=== PATIENT | male | born 1950 | race Caucasian/White ===

== ENCOUNTER → 2019-03-23 11:04 | Outpatient (BNVA) | payer MEDICARE, SELFPAY | PROVIDERS: Family Provider Family Medicine; PCP Family Medicine; Referring Provider Family Medicine; Visit Provider Family Medicine | DX: E53.8 Deficiency of other specified B group vitamins (principal); Z71.89 Other specified counseling | CPT/HCPCS: 82607 ==

== ENCOUNTER → 2020-03-24 11:28 | Outpatient (BNVA) | payer MEDICARE, SELFPAY | PROVIDERS: Family Provider Family Medicine; PCP Family Medicine; Visit Provider Family Medicine | DX: Z00.00 Encounter for general adult medical examination without abnormal findings (principal); D51.0 Vitamin 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 | CPT/HCPCS: 82607; 85025 ==

== ENCOUNTER 2022-02-20 02:39 | Inpatient (IN) | payer MEDICARE, SELFPAY ==
[2022-02-20] VITALS (19 sets, daily range): BP systolic 91–138; BP diastolic 63–94; PULSE 74–104; RESP 16–18; TEMP 36.4–37.4; O2SAT 91–96; BMI 25.8
--- NOTE | 2022-02-20 02:43 | XRR_ITS ---
PROCEDURE INFORMATION: Exam: XR Left Hip Exam date and time: 02/20/2022 2:48 AM Age: 71 years old Clinical indication: Injury or trauma; Fall; Blunt trauma (contusions or hematomas); Patient HX: Patient fell from standing while going to bathroom at home. C/O left hip pain with visual external rotation and forshortening. TECHNIQUE: Imaging protocol: Radiologic exam of the Left hip. Views: 2 or 3 views hip with pelvis when performed. COMPARISON: No relevant prior studies available. FINDINGS: Bones/joints: There is a moderately displaced and comminuted acute left hip intertrochanteric/subtrochanteric fracture. No femoral head dislocation. Moderate left hip DJD. Soft tissues: Unremarkable. XR/XR hip LT 2-3V wo/w pel* [id number] IMPRESSION: Left hip acute surgical fracture.
--- NOTE | 2022-02-20 02:45 | W.ED.FALL ---
HPI - Fall General: Chief Complaint: Fall Stated Complaint: FALL Time Seen by Provider: 02/20/22 02:43 Source: patient Mode of arrival: ambulatory Limitations: no limitations History of Present Illness: 71-year-old male who states he got up to go to the bathroom tonight and fell states he fell instability hit his left hip he does have left hip pain he has not been able ambulate he does have shortening rotation of that leg he denies any other injuries denies hitting his head. He received 100 mcg of fentanyl in route his pain is currently a 3 out of 10. Associated symptoms-after fall: Denies abdominal pain, chest pain or headache(s) Review of Systems Const: Denies: fever(s), chills, body aches or change in appetite Eyes: Denies: blurry vision or eye discomfort ENMT: Denies: throat pain or dental pain Card: Denies: chest pain Resp: Denies: dyspnea GI: Denies: abdominal pain, nausea, vomiting or diarrhea : Denies: dysuria Musc: Reports: extremity pain Skin/Breast: Denies: rash Neuro: Denies: headache(s) Psych: Denies: depression Jonel/Lymph: Denies: easy bruising All/Imm: Denies: urticaria PFSH ED PFSH: Medical History Hyperlipemia Vitamin B12 deficiency anemia Social History Smoking and tobacco status: never smoked Physical Exam Const: COMMON NORMALS: patient oriented x3 HENMT: COMMON NORMALS: normocephalic and atraumatic HEAD & SCALP: normocephalic and atraumatic Eye: COMMON NORMALS: Equal, round and reactive pupils present and EOMs intact bilaterally PUPIL: Yes Equal, round and reactive pupils present Neck/C-Spine: COMMON NORMALS: full ROM and supple Chest: COMMONS NORMALS: normal inspection of the chest and normal palpation of entire chest wall Resp: COMMON NORMALS: normal respiratory effort, No retractions, No use of accessory muscles and clear to auscultation bilaterally AUSCULTATION: clear to auscultation bilaterally Cardio: COMMON NORMALS: regular rate, regular rhythm and No murmurs present (Cardio) RATE: regular rate RHYTHM: regular rhythm GI: COMMON NORMALS: Normal to inspection, nondistended, normoactive bowel sounds present, Soft to palpation, non-tender and no masses PALPATION: Yes Soft to palpation Extremity: NARRATIVE EXTREMITY EXAM: tenderness over left hip Neuro: COMMON NORMALS: patient oriented x3, moves all extremities and no focal motor deficits Psych: COMMON NORMALS: mental status grossly normal, Normal thought process present and cooperative THOUGHT PROCESS: Normal thought process present Skin: COMMON NORMALS: no rashes or lesions noted and no wounds GENERAL SKIN EXAM: no rashes or lesions noted Course Vital Signs: Vital signs: Vital Signs Temperature 98.7 F 02/20/22 02:42 Pulse Rate 86 02/20/22 02:42 Respiratory Rate 18 02/20/22 02:42 Blood Pressure 138/94 02/20/22 02:42 Pulse Oximetry 92 02/20/22 02:42 Oxygen Delivery Me thod 02/20/22 02:42 MDM - Fall Medical Decision Making Patient presents here with a hip fracture from a fall he has no other injuries I spoke to hospitalist and orthopedist and will admit. Lab Data 02/20/22 02:30 02/20/22 02:30 Laboratory Results WBC 9.8 10^3/uL (4.0-10.0) 02/20/22 02:30 RBC 4.60 10^6/uL (4.1-5.3) 02/20/22 02:30 Hgb 14.6 g/dL (11.7-16.6) 02/20/22 02:30 Hct 44.3 % (42.0-52.0) 02/20/22 02:30 MCV 96.3 fl (80-94) H 02/20/22 02:30 MCH 31.7 pg (28.0-34.0) 02/20/22 02:30 MCHC 33.0 g/dL (30.0-36.0) 02/20/22 02:30 RDW 12.5 % (12.1-15.1) 02/20/22 02:30 Plt Count 197 10^3/cmm (130-400) 02/20/22 02:30 MPV 9.4 fL (7.4-10.4) 02/20/22 02:30 Neut % (Auto) 67.6 % 02/20/22 02:30 Lymph % (Auto) 19.5 % 02/20/22 02:30 [place] % (Auto) 10.6 % 02/20/22 02:30 Eos % (Auto) 1.3 % 02/20/22 02:30 Baso % (Auto) 0.3 % 02/20/22 02:30 Neut # (Auto) 6.64 10^3/uL (1.8-7.7) 02/20/22 02:30 Lymph # (Auto) 1.9 10^3/uL (0.8-4.8) 02/20/22 02:30 [place] # (Auto) 1.0 10^3/uL (0.2-0.9) H 02/20/22 02:30 Eos # (Auto) 0.1 10^3/uL (0.0-0.8) 02/20/22 02:30 Baso # (Auto) 0.0 10^3/uL (0.0-0.1) 02/20/22 02:30 Nucleated RBC % (auto) 0 % 02/20/22 02:30 Nucleated RBCs # 0.0 /100WBC 02/20/22 02:30 PT 15.40 SECONDS (12.1-14.9) H 02/20/22 02:30 INR 1.18 (0.8-1.2) 02/20/22 02:30 Discharge Plan Discharge Patient Disposition: Admitted As Inpatient Clinical Impression: Fracture of left hip Condition: Stable Prescriptions: No Action cholecalciferol (vitamin D3) 25 mcg (1,000 unit) capsule 75 mcg PO DAILY prenat.vits,shanika,sfh-opkq-gxoxa Tablet 1 tab PO DAILY cyanocobalamin (vitamin B-12) 1,000 mcg/mL solution See Rx Instructions .ROUTE .COMPLEX Qty: 6 5RF Dose Instruction: INJECT 1 & 1/2 (ONE & ONE-HALF) ML (CC) INTRAMUSCULARLY ONCE EVERY MONTH Rx Instructions: INJECT 1 & 1/2 (ONE & ONE-HALF) ML (CC) INTRAMUSCULARLY ONCE EVERY MONTH simvastatin 40 mg tablet See Rx Instructions .ROUTE .COMPLEX Qty: 90 3RF Dose Instruction: Take 1 tablet by mouth once daily Rx Instructions: Take 1 tablet by mouth once daily Referrals: Felicita Dunn MD [Primary Care Provider] - Patient Instructions: Opioid Safety, Pain Management Coding Level of Care Code ED Magneto Repairer for Chg Fwd Exam Comprehensive
--- NOTE | 2022-02-20 02:55 | XRR_ITS ---
PROCEDURE INFORMATION: Exam: XR Chest Exam date and time: 02/20/2022 2:52 AM Age: 71 years old Clinical indication: Injury or trauma; Fall; Blunt trauma (contusions or hematomas); Patient HX: Patient fell from standing while going to bathroom at home. C/O left hip pain with visual external rotation and forshortening. TECHNIQUE: Imaging protocol: Radiologic exam of the chest. Views: 1 view. COMPARISON: No relevant prior studies available. FINDINGS: Lungs: Left lung base opacities are subtle. No actual consolidation. The right lung seems grossly clear. Pleural spaces: No pneumothorax. Heart/Mediastinum: The heart is large. Mild venous congestion. Bones/joints: Unremarkable. XR/XR chest 1V portable [id number] IMPRESSION: 1. Large heart with mild venous congestion. 2. Left lung base atelectasis or scarring possible. Possible minute left effusion.
--- NOTE | 2022-02-20 02:59 | ECG_ITS ---
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 Measurements Intervals [place] Rate: 89 P: 60 [place]: 169 QRS: 32 QRSD: 86 T: 29 QT: 364 QTc: 445 Interpretive Statements SINUS RHYTHM WITH OCCASIONAL ECTOPIC PREMATURE COMPLEXES MINIMAL ST DEPRESSION [0.025+ mV ST DEPRESSION] No previous ECG available for comparison Electronically Signed On 02-20-2022 20:24:56 ANALYTICAL DATA MINER by Nate Saldana M.D. [id number]
[2022-02-20 03:03] LABS: Basophils % 0.3 %; Eosinophils # 0.1 10^3/uL (0.0-0.8); Eosinophils % 1.3 %; Hematocrit 44.3 % (42.0-52.0); Hemoglobin 14.6 g/dL (11.7-16.6); Lymphocytes # 1.9 10^3/uL (0.8-4.8); Lymphocytes % 19.5 %; Mean Corpuscular Hemoglobin 31.7 pg (28.0-34.0); Mean Corpuscular Volume 96.3 fl (80-94); Mean Platelet Volume 9.4 fL (7.4-10.4); Monocytes % 10.6 %; Neutrophils # 6.64 10^3/uL (1.8-7.7); Neutrophils % 67.6 %; Nucleated Red Blood Cells % 0 %; Platelet Count 197 10^3/cmm (130-400); Red Cell Distribution Width 12.5 % (12.1-15.1); White Blood Count 9.8 10^3/uL (4.0-10.0)
[2022-02-20 03:14] LABS: INR 1.18 (0.8-1.2)
[2022-02-20] MEDS: heparin 5,000 unit/mL INJ 1 mL 5000 UNIT SUBCUT (03:24)
[2022-02-20] MEDS: ondansetron 2 mg/ML SDV 2 mL 4 MG IVP (03:26)
[2022-02-20] MEDS: morphine 4 mg/mL SDV 1 mL 2 MG IVP (03:26)
[2022-02-20] MEDS: pantoprazole 40 mg SDV IVP (03:28)
[2022-02-20 03:29] LABS: Alanine Aminotransferase 29 U/L (0-41); Albumin Level 3.9 g/dL (3.5-5.2); Alkaline Phosphatase 88 U/L (40-130); Anion Gap 15.6 (5-19); Aspartate Amino Transferase 24 U/L (0-40); Blood Urea Nitrogen 10 mg/dL (8-23); Calcium 8.5 mg/dL (8.5-10.5); Carbon Dioxide 22 mmol/L (22-29); Chloride 104 mmol/L (98-107); Globulin 2.5 g/dL (1.3-4.6); Glucose 128 mg/dL (65-115); Osmolality Calculated 287 mOsm/kg (285-295); Potassium 3.6 mmol/L (3.5-5.1); Sodium 138 mmol/L (136-145); Total Bilirubin 0.6 mg/dL (0.15-1.2); Total Protein 6.4 g/dL (6.6-8.7)
[2022-02-20] MEDS: sodium chloride 0.9% 1,000 ML 75 ML IV (04:20)
--- NOTE | 2022-02-20 05:40 | PM.HP ---
Providers/Chief Complaint Primary Care Provider: Felicita Dunn MD Chief Complaint: FALL History of Present Illness Aden Briseno is a 71 year old male with past medical history of hyperlipidemia, B12 deficiency presented to the hospital today after a fall at home. He states he got up to go to the bathroom and became unstable and had fall. He did get dizzy right before he fell. and patient states that they both have been sick recently with some sort of an upper respiratory illness. He has had a mild cough and some congestion. Does not wear oxygen at home but is requiring 2 L at this time. They both feel they are starting to feel little bit better. Patient does have chronic diarrhea and there is no change in that. They both have sinus congestion and mild headache. Patient is a non-smoker. Patient and his have not been tested for COVID or the flu. Patient has had both pneumonia vaccines. Says he is pretty healthy otherwise and has no other known medical issues. Able to walk up and down a flight of stairs without getting short of breath and able to walk a block without getting short of breath. He is unable to ambulate after the fall. He was brought in via EMS. Patient was given 100 MCG of fentanyl in route. He denies abdominal pain, chest pain, shortness of breath, headache. Denies hitting his head. Not on any home medications at home except vitamin B12, simvastatin and vitamin D. Dr. Mitchell was contacted. Plan for surgery in a.m. Medications/Allergies Home Medications Medication Instructions Recorded Confirmed Last Taken Type cholecalciferol (vitamin D3) 25 75 mcg PO DAILY 09/28/19 12/20/21 Unknown History mcg (1,000 unit) capsule prenat.vits,shanika,vst-ywlm-wtgpu 1 tab PO DAILY 10/20/19 12/20/21 Unknown History cyanocobalamin (vitamin B-12) See Rx Instructions .Route 03/29/21 12/20/21 Unknown Rx 1,000 mcg/mL injection solution .COMPLEX #6 mL simvastatin 40 mg tablet See Rx Instructions .Route 06/30/21 12/20/21 Unknown Rx .COMPLEX #90 tabs Allergies Allergy/AdvReac Type Severity Reaction Status Date / Time No Known Allergies Allergy Verified 06/26/21 08:42 PFSH Acute PFSH: Medical History Hyperlipemia Vitamin B12 deficiency anemia Social History Smoking and tobacco status: never smoked Vitals/I&O/Wt Last Vital Signs Temp 98.7 F 02/20/22 02:42 Pulse 86 02/20/22 02:42 Resp 18 02/20/22 02:42 BP 138/94 02/20/22 02:42 Pulse Ox 92 02/20/22 02:42 O2 Del Method 02/20/22 02:42 Weight last 48 hrs Weight 81.647 kg Physical Exam Narrative: General: Alert oriented x3, patient seen and Comfortable at this time. HEENT: Normocephalic, atraumatic, EOMI, breathing normally Cardio: Regular rate rhythm, normal S1-S2, no gross murmers Respiratory: Mild rhonchi and crackles bilaterally at bases. GI: Abdomen soft, nontender, nondistended, bowel sounds + Extremities: left leg shortened and externally rotated Data 02/20/22 02:30 02/20/22 02:30 A&P Assessment and plan (1) Fracture of left hip: (2) Hyperlipemia: (3) Essential (primary) hypertension: (4) Vitamin B12 deficiency anemia: Qualifiers: 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 Qualified Code(s): D51.0 - Vitamin 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 Plan #Left hip fracture #Vitamin B12 deficiency - Follows at [facility]. - NPO at midnight - Hip surgery in AM - Orthopedics consulted. Dr. Mitchell - CXR shows mild pulm vascular congestion and lungs sound crackly as well. ? Currently requiring oxygen. ? We will check for flu and COVID. - Will give lasix 40 mg IV x1 - Continue on nasal cannula - Baseline EKG done. No acute ischemic changes - Strauss placement - Baseline labs grossly normal - Revised Cardiac Risk Index: Class 1 risk. 3.9% 30 day risk of , [place] or cardiac arrest. Able to do 4 METS at baseline. PT/OT -I will hold off on IV fluids for now. - Full Code DVT PPX: heparin sub c Attestations Medical Necessity Statement*: > 2 midnight stay for mgmt of hip fracture Coding Level of Care Code Acute Rural Health Consultant for [facility] Diagnoses Fracture of left hip S72.002A Hyperlipemia E78.5 Essential (primary) hypertension I10 Vitamin B12 deficiency anemia D51.0 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
[2022-02-20 07:14] LABS: Procalcitonin 0.11 ng/mL (0-0.5)
[2022-02-20 07:16] LABS: Influenza A by IFA negative (Negative); Influenza B by IFA negative (Negative)
[2022-02-20] MEDS: albuterol 2.5 mg/3 mL Neb INHALATION (08:12)
[2022-02-20] MEDS: ipratropium 0.5 mg/2.5 mL Neb INHALATION (08:12)
[2022-02-20 08:44] LABS: Adenovirus Not Detected (NOT DETECT); Chlamydia Pneumoniae Not Detected (NOT DETECT); Coronavirus 229E,HKU1,NL63,OC4 Not Detected (NOT DETECT); Human Metapneumovirus Not Detected (NOT DETECT); Human Rhinovirus/Enterovirus Detected (NOT DETECT); Influenza A Not Detected (NOT DETECT); Influenza A H1 Not Detected (NOT DETECT); Influenza A H1-2009 Not Detected (NOT DETECT); Influenza A H3 Not Detected (NOT DETECT); Influenza B Not Detected (NOT DETECT); Mycoplasma Pneumoniae Not Detected (NOT DETECT); Parainfluenza Virus Type 1 Not Detected (NOT DETECT); Parainfluenza Virus Type 2 Not Detected (NOT DETECT); Parainfluenza Virus Type 3 Not Detected (NOT DETECT); Parainfluenza Virus Type 4 Not Detected (NOT DETECT); Respiratory Syncytial Virus A Detected (NOT DETECT); Respiratory Syncytial Virus B Not Detected (NOT DETECT); SARS-COV-2 Not Detected (NOT DETECT)
[2022-02-20 08:45] LABS: NT Pro B Type Natriuretic Pept 131 pg/mL (0-125)
[2022-02-20] MEDS: FUROsemide 10 mg/mL SDV 2mL 20 MG IVP (08:56)
[2022-02-20 09:05] LABS: Human Metapneumovirus Not Detected (NOT DETECT); Human Rhinovirus/Enterovirus Detected (NOT DETECT); Results from Genmark
[2022-02-20 10:16] LABS: Respiratory Syncytial Virus A Detected (NOT DETECT); Respiratory Syncytial Virus B Not Detected (NOT DETECT); Results from GEN
--- NOTE | 2022-02-20 10:22 | PM.CONSULT ---
Providers/Reason For Consult Consulting Physician/Specialty*: Compa Mitchell MD; orthopedic surgeon Reason for Consult*: Left intratrochanteric hip fracture Attending Physician: Lara Abdi MD Primary Care Provider: Felicita Dunn MD History of Present Illness History of Present Illness Aden Briseno is a 71 year old male who apparently got up to go to the bathroom last night became unstable and dizzy and fell. The reports that they both have been suffering from upper respiratory infection. He described immediate pain in his left hip. He had now been unable to ambulate. Medical clearance has been obtained and orthopedics is consulted to consider surgical treatment. Medications/Allergies Home Medications Medication Instructions Recorded Confirmed Last Taken Type cholecalciferol (vitamin D3) 25 75 mcg PO DAILY 09/28/19 02/20/22 Unknown History mcg (1,000 unit) capsule prenat.vits,shanika,bzb-hddt-evlmq 1 tab PO DAILY 10/20/19 02/20/22 Unknown History cyanocobalamin (vitamin B-12) See Rx Instructions .Route 03/29/21 02/20/22 Unknown Rx 1,000 mcg/mL injection solution .COMPLEX #6 mL lactobacillus comb no.10 20 20,000 mmu cells PO DAILY 02/20/22 02/20/22 Unknown History billion cell capsule (Probiotic) simvastatin 40 mg tablet 40 mg PO DAILY 02/20/22 02/20/22 Unknown History Allergies Allergy/AdvReac Type Severity Reaction Status Date / Time No Known Allergies Allergy Verified 06/26/21 08:42 Current Medications Generic Name Dose Route Start Last Admin Trade Name Freq PRN Reason Stop Dose Admin Heparin Sodium (Porcine) 5,000 unit 02/20/22 03:15 02/20/22 03:24 Heparin 5,000 Unit/Ml Inj 1 Ml SUBCUT 5,000 unit Q12H BRYANT Administration Morphine Sulfate 2 mg 02/20/22 03:14 02/20/22 03:26 Morphine 4 Mg/Ml Sdv 1 Ml IVP 2 mg Q6H PRN Administration SEVERE PAIN Ondansetron HCl 4 mg 02/20/22 03:14 02/20/22 03:26 Ondansetron 2 Mg/Ml Sdv 2 Ml IVP 4 mg Q8H PRN Administration vomiting, or N/V if npo Pantoprazole Sodium 40 mg 02/20/22 03:15 02/20/22 03:28 Pantoprazole 40 Mg Sdv IVP 40 mg Q24H BRYANT Administration PFSH Acute PFSH: Medical History Hyperlipemia Vitamin B12 deficiency anemia Social History Smoking and tobacco status: never smoked Vitals/I&O/Wt Last Vital Signs Temp 99.1 F 02/20/22 07:57 Pulse 99 02/20/22 08:18 Resp 18 02/20/22 08:12 BP 105/70 02/20/22 07:57 Pulse Ox 95 02/20/22 08:12 O2 Del Method 02/20/22 08:12 O2 Flow Rate 2 02/20/22 08:12 02/19/22 02/20/22 02/20/22 22:59 06:59 14:59 Output Total 125 / 125 Balance -125 / -125 Weight last 48 hrs Weight 180 lb Physical Exam Urinary Catheter Management: Strauss: Cath Placed During This Visit: yes Reason for Continuing Indwelling Catheter: Perioperative Use in Selected Surgeries Urinary Catheter Date of Insertion: 02/20/22 Urinary Catheter Time of Insertion: 03:48 Data 02/20/22 02:30 02/20/22 02:30 Xray Ortho: My impression: 2 views of the left hip are reviewed from earlier this morning. The patient has a comminuted left intratrochanteric hip fracture with lesser tuberosity displacement. He has significant osteopenia consistent with age. A&P Assessment and plan (1) Intertrochanteric fracture of left hip: Aden has had this unstable displaced fracture with severe underlying osteopenia. He is previously fully amatory. I discussed options with the []. I told them we could treat this nonoperatively but certainly they would be at risk for medical problems without surgery. Theywould have problems with pain that would require narcotics for pain control. They would require a long period of bedrest immigration judge risk for pneumonia and skin breakdown. I discussed surgical intervention with the patient. I told them with open reduction internal fixation they should be able to be mobilized and resume ambulatory status. We can eliminate the problems associated with prolonged bed rest and would have better control of pain. Certainly there would be inherent risk with surgery. These would would include the risk of cardiac complications, stroke, infection, and even . I discussed risk of any orthopedic implant including nonunion, malunion, a component failure. I discussed the possible need for component removal. I discussed risk of deep venous thromboses and pulmonary emboli that are present with any treatment and the importance of DVT prophylaxis. They expressed good understanding of alternative treatments, seem to comprehend, and agrees to surgical intervention. Coding Level of Care Code Acute Zipper Trimmer for [facility] Diagnoses Intertrochanteric fracture of left hip S72.142A
--- NOTE | 2022-02-20 10:53 | PM.MISC ---
Miscellaneous Note Note: Patient is RSV positive He was on room air when I saw him hemodynamically stable Clinically does not look fluid overloaded No need of PE operative cardiac work-up He is very active for his age Laying flat Doing well on room air Abdomen soft No signs of edema Awake and alert Left leg is shortened and rotated outwards Awake and alert at the bedside Plan for surgical intervention today No preoperative cardiac work-up recommended at this point Patient is very active for his age For RSV type a he will need conservative management no need of antibiotics I have given him a small dose of Lasix this morning Clinically dry BNP is not high we will follow-up with echo
[2022-02-20] MEDS: sodium chloride 0.9% 1,000 ML 30 ML IV (11:23)
[2022-02-20] MEDS: ceFAZolin 2,000 MG in sodium chloride 0.9% (plus) 50 ML 100 MG IV ×2 (12:00→20:25)
--- NOTE | 2022-02-20 13:00 | XR_ITS ---
WS: [id number] Left hip, C-arm fluoroscopy, 02/20/2022 Clinical Data: or pics Comparison: Left hip, 02/20/2022 Findings: Dr. Pope repaired the intertrochanteric subtrochanteric left hip fracture with an oblique nail and a n intramedullary yarelis extending to the distal left femur. XR/XR hip LT 1V wo/w pel [id number] Impression: Internal fixation of left hip intertrochanteric subtrochanteric fracture.
--- NOTE | 2022-02-20 13:12 | ANES.PREANE2 ---
Pre-Anesthetic Assessment Height/Weight: Height 1.78 m Weight 81.647 kg Temp Pulse Resp BP Pulse Ox O2 Del Method O2 Flow Rate 99.4 F 100 16 105/75 92 2 02/20/22 11:11 02/20/22 11:11 02/20/22 11:11 02/20/22 11:11 02/20/22 11:11 02/20/22 11:11 02/20/22 11:11 Preop Diagnosis: Left intertrochanteric hip Operation Date: 02/20/22 16:00 Proposed Procedures p Trochanteric Femoral Nail(Left) - Compa Mitchell MD Familial anesthetic complications: none Was Beta Trisha taken within 24 hours: N/A Was Clonidine taken within 24 hours: N/A Last intake: Intake Last Liquid Date 02/19/22 Last Liquid Time 20:00 Last Solid Date 02/19/22 Last Solid Time 17:00 Social No alcohol and No tobacco Exam alert, oriented x 3 and regular rate & rhythm Airway Submandibular: within normal limits Cervical ROM: within normal limits Mallampati: Class II Dentition: chipped CV/HEM Anemia and Hypertension Metabolic Hyperlipidemia Anesthetic Plan ASA status: 3 Anesthesia: General Medications/Allergies Home Medications Medication Instructions Recorded Confirmed Last Taken Type cholecalciferol (vitamin D3) 25 75 mcg PO DAILY 09/28/19 02/20/22 Unknown History mcg (1,000 unit) capsule prenat.vits,shanika,fwb-doqr-gxcst 1 tab PO DAILY 10/20/19 02/20/22 Unknown History cyanocobalamin (vitamin B-12) See Rx Instructions .Route 03/29/21 02/20/22 Unknown Rx 1,000 mcg/mL injection solution .COMPLEX #6 mL lactobacillus comb no.10 20 20,000 mmu cells PO DAILY 02/20/22 02/20/22 Unknown History billion cell capsule (Probiotic) simvastatin 40 mg tablet 40 mg PO DAILY 02/20/22 02/20/22 Unknown History Allergies Allergy/AdvReac Type Severity Reaction Status Date / Time No Known Allergies Allergy Verified 06/26/21 08:42 Current Medications Generic Name Dose Route Start Last Admin Trade Name Freq PRN Reason Stop Dose Admin Heparin Sodium (Porcine) 5,000 unit 02/20/22 03:15 02/20/22 03:24 Heparin 5,000 Unit/Ml Inj 1 Ml SUBCUT 5,000 unit Q12H BRYANT Administration Sodium Chloride 1,000 mls @ 30 mls/hr 02/20/22 11:15 02/20/22 11:23 Sodium Chloride 0.9% IV 02/21/22 11:14 30 mls/hr .Q24H BRYANT Administration Morphine Sulfate 2 mg 02/20/22 03:14 02/20/22 03:26 Morphine 4 Mg/Ml Sdv 1 Ml IVP 2 mg Q6H PRN Administration SEVERE PAIN Ondansetron HCl 4 mg 02/20/22 03:14 02/20/22 03:26 Ondansetron 2 Mg/Ml Sdv 2 Ml IVP 4 mg Q8H PRN Administration vomiting, or N/V if npo Pantoprazole Sodium 40 mg 02/20/22 03:15 02/20/22 03:28 Pantoprazole 40 Mg Sdv IVP 40 mg Q24H BRYANT Administration PFSH Anesthesia Medical History Hyperlipemia Vitamin B12 deficiency anemia Social History Smoking and tobacco status: never smoked Data Anesthesia 02/20/22 02:30 02/20/22 02:30 Short CBC 02/20/22 Range/Units 02:30 WBC 9.8 (4.0-10.0) 10^3/uL Hgb 14.6 (11.7-16.6) g/dL Hct 44.3 (42.0-52.0) % MCV 96.3 H (80-94) fl Plt Count 197 (130-400) 10^3/cmm Neut % (Auto) 67.6 % Neut # (Auto) 6.64 (1.8-7.7) 10^3/uL BMP 02/20/22 02:30 Sodium 138 Potassium 3.6 Chloride 104 Carbon Dioxide 22 BUN 10 Creatinine 1.0 Glucose 128 H Calcium 8.5 Cardiac Enzymes 02/20/22 Range/Units 02:30 NT-Pro-B Natriuret Pep 131 H (0-125) pg/mL Liver Function 02/20/22 Range/Units 02:30 Total Bilirubin 0.6 (0.15-1.2) mg/dL AST 24 (0-40) U/L ALT 29 (0-41) U/L Alkaline Phosphatase 88 (40-130) U/L Albumin 3.9 (3.5-5.2) g/dL COVID Results 02/20/22 06:35 Coronavirus 229E (PCR) Not detected SARS-CoV-2 (PCR) Not detected Coags 02/20/22 02:30 PT 15.40 H INR 1.18 Cardiac Studies: No Data to Display
--- NOTE | 2022-02-20 13:23 | PM.OP ---
Operative Report Date of procedure: February 20, 2022 Pre-op diagnosis: Preop Diagnosis Left intertrochanteric hip Post-op diagnosis: Same Procedure done: Open reduction internal fixation left hip with intramedullary device Implants: Greentop Gamma nail 13mm x 420 mm, 10.5mm by 110 lag screw Pathology: none sent Surgeon: Compa Mitchell Anesthesia: General Estimated blood loss (mL): 50 Findings: The patient had a comminuted left intratrochanteric hip fracture consisting of a displaced head and neck fragment and a displaced lesser trochanteric fragment Condition: stable Disposition: PACU Procedure: The patient was taken to the operating room. They were given 1 g of Ancef. They were positioned on the fracture table with the lower extremity in gentle traction. A timeout was performed. A 2 cm long incision was made proximal to the greater trochanter scalpel blade. Dissection was carried down to tip the greater trochanter. A guidepin was passed manually from the tip of the trochanter down the shaft. The proximal reamer was utilized to open up the proximal canal. An 13 mm 400 Greentop gamma nail was passed down the canal without difficulty. Under visualization of fluoroscopy a guidepin was driven up into the head and neck at 125? angle. It was measured at 110 mm in length and a lag screw similar length was then placed and locked into place with the proximal locking screw. Fluoroscopy was used to place a distal locking screw through the static hole. Intraoperative imaging was obtained verifying satisfactory position of the hardware and reduction of the fracture. Deep tissues were closed with 0 Vicryl as were subcutaneous tissues. The skin was closed with running 4-0 subcutaneous Monocryl suture. Sterile dressings were applied. The patient was extubated and taken to recovery room in stable condition.
--- NOTE | 2022-02-20 15:03 | ANE.PACU2 ---
Inpatient post-anesthesia follow up: Airway intact: Yes Vital signs: Temperature 97.5 F Pulse Rate 87 Respiratory Rate 16 Blood Pressure 91/70 Pulse Oximetry 94 Oxygen Delivery Me thod Nasal Cannula Oxygen Flow Rate 1 Fraction of Inspir ed Oxygen Hydration adequate: Yes Nausea and vomiting: No Pain level: 3 Mental status: Baseline
[2022-02-20] MEDS: chlorhexidine gluconate 0.12% Btl 473 mL 30 ML MUCOUS MEM ×2 (18:15→20:25)
[2022-02-20] MEDS: oxyCODONE-APAP 10-325 mg Tablet 1 TAB PO (20:25)
[2022-02-21] VITALS (7 sets, daily range): BP systolic 76–119; BP diastolic 51–75; PULSE 60–95; RESP 15–19; TEMP 36.7–37.1; O2SAT 93–95
[2022-02-21 01:37] LABS: Basophils % 0.1 %; Hematocrit 37.5 % (42.0-52.0); Hemoglobin 12.2 g/dL (11.7-16.6); Lymphocytes # 1.1 10^3/uL (0.8-4.8); Lymphocytes % 7.6 %; Mean Corpuscular HGB Conc 32.5 g/dL (30.0-36.0); Mean Corpuscular Hemoglobin 31.8 pg (28.0-34.0); Mean Corpuscular Volume 97.7 fl (80-94); Mean Platelet Volume 9.2 fL (7.4-10.4); Monocytes # 1.1 10^3/uL (0.2-0.9); Monocytes % 7.7 %; Neutrophils # 11.86 10^3/uL (1.8-7.7); Nucleated Red Blood Cells % 0 %; Platelet Count 167 10^3/cmm (130-400); Red Blood Count 3.84 10^6/uL (4.1-5.3); Red Cell Distribution Width 12.5 % (12.1-15.1); White Blood Count 14.1 10^3/uL (4.0-10.0)
[2022-02-21 02:11] LABS: Anion Gap 15.3 (5-19); Blood Urea Nitrogen 13 mg/dL (8-23); Calcium 7.9 mg/dL (8.5-10.5); Carbon Dioxide 23 mmol/L (22-29); Chloride 106 mmol/L (98-107); Creatinine Clr Calc Pharmacy 64.6811; Glucose 201 mg/dL (65-115); Magnesium 2.2 mg/dL (1.7-2.3); Osmolality Calculated 296 mOsm/kg (285-295); Potassium 4.3 mmol/L (3.5-5.1); Sodium 140 mmol/L (136-145)
[2022-02-21] MEDS: pantoprazole 40 mg SDV IVP (03:32)
[2022-02-21] MEDS: ceFAZolin 2,000 MG in sodium chloride 0.9% (plus) 50 ML 100 MG IV ×2 (03:32→13:28)
[2022-02-21] MEDS: oxyCODONE-APAP 10-325 mg Tablet 1 TAB PO ×2 (06:08→13:26)
[2022-02-21] MEDS: sennosides-docusate Tablet 1 TAB PO (08:36)
[2022-02-21] MEDS: aspirin 325 mg EC Tablet PO (08:36)
[2022-02-21] MEDS: chlorhexidine gluconate 0.12% Btl 473 mL 30 ML MUCOUS MEM ×3 (08:37→21:37)
--- NOTE | 2022-02-21 10:54 | USCV_ITS ---
Aden Briseno Age: 71 Gender: M : 1950 Exam Date: 02/21/2022 02:15 Ordering Phys: Lara Abdi MD Technologist: ARY Exam Location: [facility] – [place] Indication: fall No history of cardiac intervention per patient. No blood pressures have been posted on [employer]. LEFT hip fx s/p ORIF BP: / HR: 84 Rhythm: Sinus Technical Quality: Technically difficult study due to LT hip fx MEASUREMENTS (Male / Female) Normal Values 2D ECHO LV Diastolic Diameter PLAX 5.0 cm 4.2 - 5.9 / 3.9 - 5.3 cm LV Systolic Diameter PLAX 3.0 cm IVS Diastolic Thickness 1.0 cm 0.6 - 1.0 / 0.6 - 0.9 cm IVS Systolic Thickness 1.5 cm LVPW Diastolic Thickness 1.0 cm 0.6 - 1.0 / 0.6 - 0.9 cm LVPW Systolic Thickness 1.3 cm LVOT Diameter 2.2 cm LV Ejection Fraction 2D Teich 69.9 % LV Ejection Fraction MOD 2C 67.4 % LV Ejection Fraction 2C AL 67.4 % LA Diameter 4.5 cm LA Width 3.9 cm LA Height 4.5 cm RA Width 2.8 cm RA Height 3.7 cm Aorta at Sinotubular Diameter 3.1 cm IVC Diameter 1.5 cm M-MODE Aortic Annulus Diameter 3.4 cm LA Ao Ratio MM 1.3 MV E Point Septal Separation 0.7 cm DOPPLER AV Peak Velocity 119.0 cm/s LVOT Peak Velocity 93.0 cm/s AV Area Cont Eq vti 3.5 cm squared AV Area Cont Eq pk 2.9 cm squared MV Area PHT 3.6 cm squared Mitral E to A Ratio 0.6 MV E' Velocity 30.0 cm/s Mitral E to MV E' Ratio 8.1 Mitral E to LV E' Lateral Ratio 6.5 Mitral E to LV E' Septal Ratio 10.9 PV Peak Velocity 83.0 cm/s RV Acceleration Time 0.1 s RV Ejection Time 0.3 s RV AcT/ET 0.3 FINDINGS Left Ventricle Left ventricle is normal in size. LV systolic function is normal with EF of 55 to 60%. No regional wall motion abnormalities are seen.Grade 1 diastolic dysfunction Right Ventricle Normal in size and function Right Atrium Normal Left Atrium Normal in size Mitral Valve Structurally normal mitral valve. Trace mitral regurgitation. Aortic Valve Structurally normal aortic valve. No significant stenosis or regurgitation. Tricuspid Valve Mild tricuspid regurgitation. Insufficient TR jet to calculate RVSP Pulmonic Valve Not well-visualized Pericardium Normal Aorta Normla in size IVC Appears to be normal CONCLUSIONS LV systolic function is normal with EF 55 to 60%. Grade 1 diastolic dysfunction Trace mitral regurgitation Mild tricuspid regurgitation No comparison studies are available Karsten Alcala MD (Electronically Signed) Final Date: 21 February 2022 10:47 S
--- NOTE | 2022-02-21 11:28 | P.DS_ITS ---
Discharge Providers Date of Admission: 02/20/22 03:14 Date of Discharge: February 21, 2022 Attending Provider at Admission: Anaid Kellogg MD Attending Provider at Discharge: Lara Abdi MD Primary Care Provider: Felicita Dunn MD Diagnoses at Discharge Discharge Diagnosis (1) Intertrochanteric fracture of left hip: Status: Acute Reason for Visit Reason for Visit: FALL Hospital Course Hospital Course 71-year-old male who is physically very active, without significant medical history presented to the hospital sustaining a fall he suffered from left hip fracture status post intervention ORIF by Dr. Lawson. No postoperative complications. Patient is doing well. 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 Echo did not show significant wall motion abnormality however showing diastolic dysfunction. EKG sinus rhythm. Patient to get high-dose aspirin for DVT prophylaxis. Physical Exam Narrative: Awake and alert Nonfocal neuro exam Hemodynamically stable Euvolemic Abdomen soft Doing well on room air Urinary Catheter Management: Strauss: Cath Placed During This Visit: yes, but has since been removed by the nurse Reason for Continuing Indwelling Catheter: Perioperative Use in Selected Surgeries Urinary Catheter Date of Insertion: 02/20/22 Urinary Catheter Time of Insertion: 03:48 Date Urinary Catheter Removed: 02/21/22 Time Urinary Catheter Discontinued: 06:14 Discharge Data Studies Completed and Pending Completed Studies During Hospitalization Category Date Time Status XR chest 1V portable [id number] Stat Exams 02/20/22 02:55 Completed XR hip LT 1V wo/w pel [id number] Routine Exams 02/20/22 13:00 Completed XR hip LT 2-3V wo/w pel* [id number] Stat Exams 02/20/22 02:43 Completed CV. echo complete* [id number] Routine Ultrasound 02/21/22 10:54 Completed Pending at discharge Category Date Time Status COVID OZH [Coronavirus PCR] Stat Lab 02/20/22 06:46 Ordered Influenza A&B by IFA Stat Lab 02/20/22 06:46 Ordered MRSA by PCR Stat Lab 02/20/22 14:22 Received Sputum Culture and Gram Stain Stat Lab 02/20/22 14:57 Results Radiology Impressions Hip/Pelvis X-Ray 02/20/22 02:43 IMPRESSION: Left hip acute surgical fracture. Chest X-Ray 02/20/22 02:55 IMPRESSION: 1. Large heart with mild venous congestion. 2. Left lung base atelectasis or scarring possible. Possible minute left effusion. Hip X-Ray 02/20/22 13:00 Impression: Internal fixation of left hip intertrochanteric subtrochanteric fracture. Laboratory Results WBC 14.1 10^3/uL (4.0-10.0) H 02/21/22 01:18 RBC 3.84 10^6/uL (4.1-5.3) L 02/21/22 01:18 Hgb 12.2 g/dL (11.7-16.6) 02/21/22 01:18 Hct 37.5 % (42.0-52.0) L 02/21/22 01:18 MCV 97.7 fl (80-94) H 02/21/22 01:18 MCH 31.8 pg (28.0-34.0) 02/21/22 01:18 MCHC 32.5 g/dL (30.0-36.0) 02/21/22 01:18 RDW 12.5 % (12.1-15.1) 02/21/22 01:18 Plt Count 167 10^3/cmm (130-400) 02/21/22 01:18 MPV 9.2 fL (7.4-10.4) 02/21/22 01:18 Neut % (Auto) 84.0 % 02/21/22 01:18 Lymph % (Auto) 7.6 % 02/21/22 01:18 [place] % (Auto) 7.7 % 02/21/22 01:18 Eos % (Auto) 0.0 % 02/21/22 01:18 Baso % (Auto) 0.1 % 02/21/22 01:18 Neut # (Auto) 11.86 10^3/uL (1.8-7.7) H 02/21/22 01:18 Lymph # (Auto) 1.1 10^3/uL (0.8-4.8) 02/21/22 01:18 [place] # (Auto) 1.1 10^3/uL (0.2-0.9) H 02/21/22 01:18 Eos # (Auto) 0.0 10^3/uL (0.0-0.8) 02/21/22 01:18 Baso # (Auto) 0.0 10^3/uL (0.0-0.1) 02/21/22 01:18 Nucleated RBC % (auto) 0 % 02/21/22 01:18 Nucleated RBCs # 0.0 /100WBC 02/21/22 01:18 PT 15.50 SECONDS (12.1-14.9) H 02/21/22 01:18 INR 1.20 (0.8-1.2) 02/21/22 01:18 Sodium 140 mmol/L (136-145) 02/21/22 01:18 Potassium 4.3 mmol/L (3.5-5.1) 02/21/22 01:18 Chloride 106 mmol/L (98-107) 02/21/22 01:18 Carbon Dioxide 23 mmol/L (22-29) 02/21/22 01:18 Anion Gap 15.3 (5-19) 02/21/22 01:18 BUN 13 mg/dL (8-23) 02/21/22 01:18 Creatinine 1.1 mg/dL (0.7-1.2) 02/21/22 01:18 GFR Calculation Not Reportable 02/21/22 01:18 Glucose 201 mg/dL (65-115) H 02/21/22 01:18 Calculated Osmolality 296 mOsm/kg (285-295) H 02/21/22 01:18 Calcium 7.9 mg/dL (8.5-10.5) L 02/21/22 01:18 Magnesium 2.2 mg/dL (1.7-2.3) 02/21/22 01:18 Total Bilirubin 0.6 mg/dL (0.15-1.2) 02/20/22 02:30 AST 24 U/L (0-40) 02/20/22 02:30 ALT 29 U/L (0-41) 02/20/22 02:30 Alkaline Phosphatase 88 U/L (40-130) 02/20/22 02:30 NT-Pro-B Natriuret Pep 131 pg/mL (0-125) H 02/20/22 02:30 Total Protein 6.4 g/dL (6.6-8.7) L 02/20/22 02:30 Albumin 3.9 g/dL (3.5-5.2) 02/20/22 02:30 Globulin 2.5 g/dL (1.3-4.6) 02/20/22 02:30 Procalcitonin 0.11 ng/mL (0-0.5) 02/20/22 02:30 Coronavirus 229E (PCR) Not detected (NOT DETECT) 02/20/22 06:35 Human Metapneumovir PCR Not detected (NOT DETECT) 02/20/22 09:05 Influenza Type A Ag negative (Negative) 02/20/22 06:35 Influenza Type B Ag negative (Negative) 02/20/22 06:35 RSV Type A (PCR) Detected (NOT DETECT) A 02/20/22 09:05 RSV Type B (PCR) Not detected (NOT DETECT) 02/20/22 09:05 Entero/Rhino (PCR) Detected (NOT DETECT) A 02/20/22 09:05 SARS-CoV-2 (PCR) Not detected (NOT DETECT) 02/20/22 06:35 Vitals Last Vital Signs Temp 98.8 F 02/21/22 04:00 Pulse 89 02/21/22 07:36 Resp 16 02/21/22 07:36 BP 104/64 02/21/22 04:00 Pulse Ox 94 02/21/22 07:36 O2 Del Method 02/21/22 07:36 O2 Flow Rate 2 02/21/22 08:00 Discharge Plan Discharge Patient Disposition: Home Condition: Stable Prescriptions: New oxycodone-acetaminophen 5-325 mg tablet 1 tab PO Q8H PRN (Reason: pain) Qty: 20 0RF aspirin 325 mg tablet 325 mg PO DAILY Qty: 30 0RF sennosides-docusate sodium [Senna-S] 8.6-50 mg tablet 1 tab-cap PO DAILY Qty: 10 0RF Continued cholecalciferol (vitamin D3) 25 mcg (1,000 unit) capsule 75 mcg PO DAILY prenat.vits,shanika,nyy-vexr-xvlpb Tablet 1 tab PO DAILY cyanocobalamin (vitamin B-12) 1,000 mcg/mL solution See Rx Instructions .ROUTE .COMPLEX Qty: 6 5RF Dose Instruction: INJECT 1 & 1/2 (ONE & ONE-HALF) ML (CC) INTRAMUSCULARLY ONCE EVERY MONTH Rx Instructions: INJECT 1 & 1/2 (ONE & ONE-HALF) ML (CC) INTRAMUSCULARLY ONCE EVERY MONTH Probiotic 20 billion cell Capsule 20,000 mmu cells PO DAILY Rx Instructions: administer with a meal simvastatin 40 mg tablet 40 mg PO DAILY Referrals: Felicita Dunn MD [Primary Care Provider] - Compa Mitchell MD [Physician] - 2 weeks Patient Instructions: Opioid Safety, Pain Management Discharge Attestations Time Spent in Discharge Care*: less than 30 min Quality Metrics Clinical Quality Measures [ No reported AMI, CVA or VTE this stay] Coding Level of Care Code Acute [facility] note Diagnoses Intertrochanteric fracture of left hip S72.142A
--- NOTE | 2022-02-21 12:27 | P.PN_ITS ---
Subjective Subjective: Patient is orthostatic positive, will start normal saline at 75 mill per hour To work with PT today Vitals/I&O/Wt Last Vital Signs Temp 98.8 F 02/21/22 04:00 Pulse 89 02/21/22 07:36 Resp 16 02/21/22 07:36 BP 104/64 02/21/22 04:00 Pulse Ox 94 02/21/22 07:36 O2 Del Method 02/21/22 07:36 O2 Flow Rate 2 02/21/22 08:00 02/20/22 02/21/22 02/21/22 22:59 06:59 14:59 Intake Total 50 / 2100 50 / 2150 Output Total 450 / 1875 200 / 2075 Balance -400 / 225 -150 / 75 Weight last 48 hrs Weight 81.647 kg Physical Exam Narrative: Pt clinically slightly dehydrated S1, S2 Abdomen soft Awake and alert Nonfocal neuro exam Doing well on room air at bedside Urinary Catheter Management: Strauss: Cath Placed During This Visit: yes, but has since been removed by the nurse Reason for Continuing Indwelling Catheter: Perioperative Use in Selected Surgeries Urinary Catheter Date of Insertion: 02/20/22 Urinary Catheter Time of Insertion: 03:48 Date Urinary Catheter Removed: 02/21/22 Time Urinary Catheter Discontinued: 06:14 Data 02/21/22 01:18 02/21/22 01:18 Micro: Microbiology 02/20/22 14:57 Gram Stain - Final Sputum - Expectorated Sputum A&P Assessment and plan (1) Intertrochanteric fracture of left hip: (2) Fracture of left hip: (3) Vitamin B12 deficiency anemia: Qualifiers: 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 Qualified Code(s): D51.0 - Vitamin 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 (4) Orthostatic dizziness: Plan Positive orthostasis Start normal saline 75 mill per hour To work with PT today Patient was very dizzy when he tried to get out of bed Hemodynamically stable otherwise Hemoglobin stable Patient will need aspirin for DVT prophylaxis at discharge Will add opioids along bowel regimen Full code Regular diet Attestations Medical Necessity Statement*: Continue medical management Time Spent in Patient Care: 20 Coding Level of Care Code Acute Waterproofing Mixer for [facility] Fwd Diagnoses Intertrochanteric fracture of left hip S72.142A Fracture of left hip S72.002A Vitamin B12 deficiency anemia D51.0 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 Orthostatic dizziness R42
[2022-02-21] MEDS: sodium chloride 0.9% 500 ML 999 ML IV (12:39)
[2022-02-21] MEDS: sodium chloride 0.9% 1,000 ML 75 ML IV (13:27)
--- NOTE | 2022-02-21 16:47 | PM.PN ---
Subjective Subjective: Aden's pain is adequately controlled. Strauss discontinued this morning Vitals/I&O/Wt Last Vital Signs Temp 98.8 F 02/21/22 04:00 Pulse 89 02/21/22 07:36 Resp 16 02/21/22 13:26 BP 119/75 02/21/22 12:32 Pulse Ox 94 02/21/22 07:36 O2 Del Method 02/21/22 07:36 O2 Flow Rate 2 02/21/22 08:00 02/21/22 02/21/22 02/21/22 06:59 14:59 22:59 Intake Total 50 / 2150 790 / 790 Output Total 200 / 2075 Balance -150 / 75 790 / 790 Weight last 48 hrs Weight 180 lb Physical Exam Narrative: Hip dressings clean and dry. Urinary Catheter Management: Strauss: Cath Placed During This Visit: yes, but has since been removed by the nurse Reason for Continuing Indwelling Catheter: Perioperative Use in Selected Surgeries Urinary Catheter Date of Insertion: 02/20/22 Urinary Catheter Time of Insertion: 03:48 Date Urinary Catheter Removed: 02/21/22 Time Urinary Catheter Discontinued: 06:14 Data 02/21/22 01:18 02/21/22 01:18 Micro: Microbiology 02/20/22 14:22 MRSA Culture - Final Nose 02/20/22 14:57 Gram Stain - Final Sputum - Expectorated Sputum Sputum Culture - Preliminary A&P Assessment and plan (1) Status post open reduction with internal fixation of fracture: Continue to mobilize with therapy. Possible discharge home if progresses well Attestations Medical Necessity Statement*: Patient still with significant limitations with ambulation and not safe for discharge. We will clinically follow and make decision for discharge home versus [facility] Coding Level of Care Code Acute Cutting Table Operator First for [facility] Fwd Diagnoses Status post open reduction with internal fixation of fracture Z98.890; Z87.81
[2022-02-21] MEDS: ondansetron 2 mg/ML SDV 2 mL 4 MG IVP (17:15)
[2022-02-22] VITALS (8 sets, daily range): BP systolic 95–144; BP diastolic 52–78; PULSE 70–93; RESP 16–21; TEMP 36.6–37.3; O2SAT 94–96
[2022-02-22] MEDS: sodium chloride 0.9% 1,000 ML 75 ML IV ×2 (02:55→16:33)
[2022-02-22] MEDS: pantoprazole 40 mg SDV IVP (03:00)
[2022-02-22] MEDS: oxyCODONE-APAP 10-325 mg Tablet 1 TAB PO (06:41)
--- NOTE | 2022-02-22 10:13 | P.PN_ITS ---
Subjective Subjective: Patient is extremely orthostatic, blood pressure dropped to 72/50 when he stood up with the help of a walker Complaining of dizziness and lethargic However awake and alert No overnight events He was given IV fluids and bolus yesterday Requested CBC BMP cortisol TSH Start patient on pyridostigmine for orthostatic hypotension Give him another day with PT Patient and both hopeful that he will still be able to go home Vitals/I&O/Wt Last Vital Signs Temp 99.2 F 02/22/22 08:36 Pulse 80 02/22/22 08:36 Resp 16 02/22/22 08:36 BP 101/57 02/22/22 08:36 Pulse Ox 96 02/22/22 08:36 O2 Del Method 02/22/22 08:36 O2 Flow Rate 3 02/22/22 08:36 02/21/22 02/22/22 02/22/22 22:59 06:59 14:59 Intake Total 300 / 1090 1420 / 2510 240 / 240 Balance 300 / 1090 1420 / 2510 240 / 240 Physical Exam Narrative: Awake and alert Nonfocal neuro exam No significant swelling of left leg Well on room air Orthostatic positive Abdomen soft Clinically slightly dehydrated Encephalopathy Urinary Catheter Management: Strauss: Cath Placed During This Visit: yes, but has since been removed by the nurse Reason for Continuing Indwelling Catheter: Perioperative Use in Selected Sanket geries Urinary Catheter Date of Insertion: 02/20/22 Urinary Catheter Time of Insertion: 03:48 Date Urinary Catheter Removed: 02/21/22 Time Urinary Catheter Discontinued: 06:14 Data 02/21/22 01:18 02/21/22 01:18 Micro: Microbiology 02/20/22 14:22 MRSA Culture - Final Nose 02/20/22 14:57 Gram Stain - Final Sputum - Expectorated Sputum Sputum Culture - Preliminary A&P Assessment and plan (1) Status post open reduction with internal fixation of fracture: (2) Orthostatic dizziness: (3) Intertrochanteric fracture of left hip: (4) Fracture of left hip: (5) Hyperlipemia: (6) Vitamin B12 deficiency anemia: Qualifiers: 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 Qualified Code(s): D51.0 - Vitamin 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 Plan Orthostatic hypotension Start pyridostigmine we will give him 1 dose of fludrocortisone Check cortisol TSH and B12 Check CBC, BMP no significant blood loss noted after surgery Hemodynamically labile otherwise I will give him another day with PT and medications and reevaluate later today versus tomorrow morning Left leg fracture status post ORIF Full code DVT prophylaxis on board with high-dose aspirin Continue regular diet Continue PT evaluation mental health program manager updated Attestations Medical Necessity Statement*: Continue medical management Time Spent in Patient Care: 40 Coding Level of Care Code Acute Baseball Scout for [facility] Fwd Diagnoses Status post open reduction with internal fixation of fracture Z98.890; Z87.81 Orthostatic dizziness R42 Intertrochanteric fracture of left hip S72.142A Fracture of left hip S72.002A Hyperlipemia E78.5 Vitamin B12 deficiency anemia D51.0 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
[2022-02-22] MEDS: fludrocortisone 0.1 mg Tablet PO (10:19)
[2022-02-22] MEDS: aspirin 325 mg EC Tablet PO (10:19)
[2022-02-22] MEDS: pyridostigmine 60 mg Tablet 30 MG PO ×2 (10:19→16:33)
[2022-02-22] MEDS: ondansetron 2 mg/ML SDV 2 mL 4 MG IVP ×2 (10:28→10:31)
[2022-02-22] MEDS: sodium chloride 0.9% 500 ML IV (10:48)
[2022-02-22 11:24] LABS: Basophils % 0.1 %; Eosinophils # 0.1 10^3/uL (0.0-0.8); Eosinophils % 0.4 %; Hematocrit 31.1 % (42.0-52.0); Lymphocytes # 0.8 10^3/uL (0.8-4.8); Lymphocytes % 5.8 %; Mean Corpuscular HGB Conc 32.2 g/dL (30.0-36.0); Mean Corpuscular Hemoglobin 31.9 pg (28.0-34.0); Mean Corpuscular Volume 99.4 fl (80-94); Mean Platelet Volume 9.1 fL (7.4-10.4); Monocytes # 1.4 10^3/uL (0.2-0.9); Monocytes % 9.9 %; Neutrophils # 11.68 10^3/uL (1.8-7.7); Neutrophils % 83.2 %; Nucleated Red Blood Cells % 0 %; Platelet Count 170 10^3/cmm (130-400); Red Blood Count 3.13 10^6/uL (4.1-5.3); Red Cell Distribution Width 12.6 % (12.1-15.1); White Blood Count 14.1 10^3/uL (4.0-10.0)
[2022-02-22 11:45] LABS: Alanine Aminotransferase 15 U/L (0-41); Albumin Level 3.1 g/dL (3.5-5.2); Alkaline Phosphatase 64 U/L (40-130); Aspartate Amino Transferase 16 U/L (0-40); Blood Urea Nitrogen 19 mg/dL (8-23); Calcium 7.9 mg/dL (8.5-10.5); Carbon Dioxide 24 mmol/L (22-29); Chloride 102 mmol/L (98-107); Globulin 2.4 g/dL (1.3-4.6); Glucose 132 mg/dL (65-115); Osmolality Calculated 284 mOsm/kg (285-295); Sodium 135 mmol/L (136-145); Total Bilirubin 0.6 mg/dL (0.15-1.2); Total Protein 5.5 g/dL (6.6-8.7)
[2022-02-22 12:06] LABS: Thyroid Stimulating Hormone 1.65 uIU/mL (0.27-4.20); Vitamin B12 380 pg/mL (232-1245)
[2022-02-22 13:21] LABS: Cortisol Random 23.31 ug/dL (2.47-19.5)
--- NOTE | 2022-02-22 15:55 | P.PN_ITS ---
Subjective Subjective: Patient tolerating pain and mobility but feeling lightheaded when up to ambulate Vitals/I&O/Wt Last Vital Signs Temp 98.3 F 02/22/22 12:14 Pulse 93 02/22/22 12:14 Resp 16 02/22/22 12:14 BP 114/66 02/22/22 12:14 Pulse Ox 95 02/22/22 12:14 O2 Del Method 02/22/22 12:14 O2 Flow Rate 1 02/22/22 12:14 02/22/22 02/22/22 02/22/22 06:59 14:59 22:59 Intake Total 1420 / 2510 240 / 240 Balance 1420 / 2510 240 / 240 Physical Exam Narrative: Left hip dressings clean and dry Urinary Catheter Management: Strauss: Cath Placed During This Visit: yes, but has since been removed by the nurse Reason for Continuing Indwelling Catheter: Perioperative Use in Selected Surg eries Urinary Catheter Date of Insertion: 02/20/22 Urinary Catheter Time of Insertion: 03:48 Date Urinary Catheter Removed: 02/21/22 Time Urinary Catheter Discontinued: 06:14 Data 02/22/22 11:15 02/22/22 11:15 Micro: Microbiology 02/20/22 14:22 MRSA Culture - Final Nose 02/20/22 14:57 Gram Stain - Final Sputum - Expectorated Sputum Sputum Culture - Preliminary A&P Assessment and plan (1) Status post open reduction with internal fixation of fracture: Tinea mobilize with therapy. We will continue IV fluids with orthostatic hypotension. If dizziness improves and ambulation maintained may discharge tomorrow. Attestations Medical Necessity Statement*: Continued dizziness and limited amatory status. Not suitable for discharge today Coding Level of Care Code Acute Pasteuriser Operator for [facility] Diagnoses Status post open reduction with internal fixation of fracture Z98.890; Z87.81
[2022-02-22] MEDS: chlorhexidine gluconate 0.12% Btl 473 mL 30 ML MUCOUS MEM (20:42)
[2022-02-23] VITALS (8 sets, daily range): BP systolic 95–110; BP diastolic 50–78; PULSE 70–95; RESP 16–18; TEMP 36.8–37.4; O2SAT 90–91
[2022-02-23] MEDS: pantoprazole 40 mg SDV IVP (03:05)
[2022-02-23] MEDS: sodium chloride 0.9% 1,000 ML 75 ML IV (05:58)
[2022-02-23 08:19] LABS: Hematocrit 24.3 % (42.0-52.0); Hemoglobin 7.8 g/dL (11.7-16.6)
[2022-02-23] MEDS: pyridostigmine 60 mg Tablet 30 MG PO (09:48)
[2022-02-23] MEDS: fludrocortisone 0.1 mg Tablet PO (09:49)
[2022-02-23] MEDS: aspirin 325 mg EC Tablet PO (09:49)
--- NOTE | 2022-02-23 10:01 | PM.DCS ---
Discharge Providers Date of Admission: 02/20/22 03:14 Date of Discharge: February 23, 2022 Attending Provider at Admission: Anaid Kellogg MD Attending Provider at Discharge: Lara Abdi MD Primary Care Provider: Felicita Dunn MD Diagnoses at Discharge Discharge Diagnosis (1) Status post open reduction with internal fixation of fracture: Status: Acute Reason for Visit Reason for Visit: FALL Hospital Course Hospital Course 71-year-old male who is physically very active, without significant medical history presented to the hospital sustaining a fall he suffered from left hip fracture status post intervention ORIF by Dr. Lawson. Postoperatively became anemic. No active bleeding noticed he carries history of pernicious anemia he did not get any vitamin B12 during his hospitalization. He was orthostatic positive, very dizzy with physical therapy however on 02/23 he is endorsing feeling better with IV fluid hydration. His hemoglobin has dropped down to 7.8 decision was made to discharge him after a unit of blood and IM injection of cyanocobalamin. . Patient is doing well. 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 Echo did not show significant wall motion abnormality however showing diastolic dysfunction. EKG sinus rhythm. Patient to get high-dose aspirin for DVT prophylaxis. Cortisol level normal normal TSH, low normal B12 I will give him iron, folic acid along B12 at the time of discharge. There is no active bleeding previous colonoscopies were unremarkable he may continue aspirin for DVT prophylaxis. Check CBC within 7 days Physical Exam Narrative: Awake and alert Orthostatics negative today Abdomen soft Able to get up on his own using a walker Awake and alert Euvolemic Doing well on room air S1, S2 Urinary Catheter Management: Strauss: Cath Placed During This Visit: yes, but has since been removed by the nurse Reason for Continuing Indwelling Catheter: Perioperative Use in Selected Surgeries Urinary Catheter Date of Insertion: 02/20/22 Urinary Catheter Time of Insertion: 03:48 Date Urinary Catheter Removed: 02/21/22 Time Urinary Catheter Discontinued: 06:14 Discharge Data Studies Completed and Pending Completed Studies During Hospitalization Category Date Time Status XR chest 1V portable [id number] Stat Exams 02/20/22 02:55 Completed XR hip LT 1V wo/w pel [id number] Routine Exams 02/20/22 13:00 Completed XR hip LT 2-3V wo/w pel* [id number] Stat Exams 02/20/22 02:43 Completed CV. echo complete* [id number] Routine Ultrasound 02/21/22 10:54 Completed Pending at discharge Category Date Time Status COVID OZH [Coronavirus PCR] Stat Lab 02/20/22 06:46 Ordered Hemoglobin A1C Routine Lab 02/22/22 10:11 Ordered Influenza A&B by IFA Stat Lab 02/20/22 06:46 Ordered PRBC [Leukocyte Reduced RBC] Routine Lab 02/23/22 09:56 Ordered Sputum Culture and Gram Stain Stat Lab 02/20/22 14:57 Results Type and Screen Routine Lab 02/23/22 09:56 Ordered Radiology Impressions Hip/Pelvis X-Ray 02/20/22 02:43 IMPRESSION: Left hip acute surgical fracture. Chest X-Ray 02/20/22 02:55 IMPRESSION: 1. Large heart with mild venous congestion. 2. Left lung base atelectasis or scarring possible. Possible minute left effusion. Hip X-Ray 02/20/22 13:00 Impression: Internal fixation of left hip intertrochanteric subtrochanteric fracture. Laboratory Results WBC 14.1 10^3/uL (4.0-10.0) H 02/22/22 11:15 RBC 3.13 10^6/uL (4.1-5.3) L 02/22/22 11:15 Hgb 7.8 g/dL (11.7-16.6) L 02/23/22 07:53 Hct 24.3 % (42.0-52.0) L 02/23/22 07:53 MCV 99.4 fl (80-94) H 02/22/22 11:15 MCH 31.9 pg (28.0-34.0) 02/22/22 11:15 MCHC 32.2 g/dL (30.0-36.0) 02/22/22 11:15 RDW 12.6 % (12.1-15.1) 02/22/22 11:15 Plt Count 170 10^3/cmm (130-400) 02/22/22 11:15 MPV 9.1 fL (7.4-10.4) 02/22/22 11:15 Neut % (Auto) 83.2 % 02/22/22 11:15 Lymph % (Auto) 5.8 % 02/22/22 11:15 [place] % (Auto) 9.9 % 02/22/22 11:15 Eos % (Auto) 0.4 % 02/22/22 11:15 Baso % (Auto) 0.1 % 02/22/22 11:15 Neut # (Auto) 11.68 10^3/uL (1.8-7.7) H 02/22/22 11:15 Lymph # (Auto) 0.8 10^3/uL (0.8-4.8) 02/22/22 11:15 [place] # (Auto) 1.4 10^3/uL (0.2-0.9) H 02/22/22 11:15 Eos # (Auto) 0.1 10^3/uL (0.0-0.8) 02/22/22 11:15 Baso # (Auto) 0.0 10^3/uL (0.0-0.1) 02/22/22 11:15 Nucleated RBC % (auto) 0 % 02/22/22 11:15 Nucleated RBCs # 0.0 /100WBC 02/22/22 11:15 PT 15.50 SECONDS (12.1-14.9) H 02/21/22 01:18 INR 1.20 (0.8-1.2) 02/21/22 01:18 Sodium 135 mmol/L (136-145) L 02/22/22 11:15 Potassium 4.0 mmol/L (3.5-5.1) 02/22/22 11:15 Chloride 102 mmol/L (98-107) 02/22/22 11:15 Carbon Dioxide 24 mmol/L (22-29) 02/22/22 11:15 Anion Gap 13.0 (5-19) 02/22/22 11:15 BUN 19 mg/dL (8-23) 02/22/22 11:15 Creatinine 1.0 mg/dL (0.7-1.2) 02/22/22 11:15 GFR Calculation Not Reportable 02/22/22 11:15 Glucose 132 mg/dL (65-115) H 02/22/22 11:15 Calculated Osmolality 284 mOsm/kg (285-295) L 02/22/22 11:15 Calcium 7.9 mg/dL (8.5-10.5) L 02/22/22 11:15 Magnesium 2.2 mg/dL (1.7-2.3) 02/21/22 01:18 Total Bilirubin 0.6 mg/dL (0.15-1.2) 02/22/22 11:15 AST 16 U/L (0-40) 02/22/22 11:15 ALT 15 U/L (0-41) 02/22/22 11:15 Alkaline Phosphatase 64 U/L (40-130) 02/22/22 11:15 NT-Pro-B Natriuret Pep 131 pg/mL (0-125) H 02/20/22 02:30 Total Protein 5.5 g/dL (6.6-8.7) L 02/22/22 11:15 Albumin 3.1 g/dL (3.5-5.2) L 02/22/22 11:15 Globulin 2.4 g/dL (1.3-4.6) 02/22/22 11:15 Vitamin B12 380 pg/mL (232-1245) 02/22/22 11:15 Procalcitonin 0.11 ng/mL (0-0.5) 02/20/22 02:30 TSH 1.65 uIU/mL (0.27-4.20) 02/22/22 11:15 Random Cortisol 23.31 ug/dL (2.47-19.5) H 02/22/22 11:15 Coronavirus 229E (PCR) Not detected (NOT DETECT) 02/20/22 06:35 Human Metapneumovir PCR Not detected (NOT DETECT) 02/20/22 09:05 Influenza Type A Ag negative (Negative) 02/20/22 06:35 Influenza Type B Ag negative (Negative) 02/20/22 06:35 RSV Type A (PCR) Detected (NOT DETECT) A 02/20/22 09:05 RSV Type B (PCR) Not detected (NOT DETECT) 02/20/22 09:05 Entero/Rhino (PCR) Detected (NOT DETECT) A 02/20/22 09:05 SARS-CoV-2 (PCR) Not detected (NOT DETECT) 02/20/22 06:35 Vitals Last Vital Signs Temp 98.6 F 02/23/22 05:52 Pulse 71 02/23/22 05:52 Resp 16 02/23/22 05:52 BP 102/52 02/23/22 08:00 Pulse Ox 90 02/23/22 05:52 O2 Del Method 02/23/22 05:52 O2 Flow Rate 1 02/22/22 20:00 Discharge Plan Discharge Patient Disposition: Home Health Service Condition: Stable Prescriptions: New oxycodone-acetaminophen 5-325 mg tablet 1 tab PO Q8H PRN (Reason: pain) Qty: 20 0RF aspirin 325 mg tablet 325 mg PO DAILY Qty: 30 0RF sennosides-docusate sodium [Senna-S] 8.6-50 mg tablet 1 tab-cap PO DAILY Qty: 10 0RF ferrous sulfate [Feosol] 325 mg (65 mg iron) tablet 325 mg PO DAILY Qty: 10 0RF folic acid 1 mg tablet 1 mg PO DAILY Qty: 10 0RF Continued cholecalciferol (vitamin D3) 25 mcg (1,000 unit) capsule 75 mcg PO DAILY prenat.vits,shanika,lhw-lgkt-klard Tablet 1 tab PO DAILY cyanocobalamin (vitamin B-12) 1,000 mcg/mL solution See Rx Instructions .ROUTE .COMPLEX Qty: 6 5RF Dose Instruction: INJECT 1 & 1/2 (ONE & ONE-HALF) ML (CC) INTRAMUSCULARLY ONCE EVERY MONTH Rx Instructions: INJECT 1 & 1/2 (ONE & ONE-HALF) ML (CC) INTRAMUSCULARLY ONCE EVERY MONTH Probiotic 20 billion cell Capsule 20,000 mmu cells PO DAILY Rx Instructions: administer with a meal simvastatin 40 mg tablet 40 mg PO DAILY Discharge Orders: Discharge Order (Routine); Ordered 02/23/22 Ordered By: Lara Abdi Other Ambulatory Orders: Complete Blood Count w/Auto (Routine) Timeframe: 1 Week Location: Determined by Patient Ordered By: Lara Abdi DME: [facility] (Order) Location: None Selected Ordered By: Lara Abdi Referrals: [facility] [Other] ([facility] accepted you for home health services. If you have any questions or concerns please contact them at [phone].) [facility] [place] Felicita Dunn MD [Primary Care Provider] - 7-10 days Compa Mitchell MD [Physician] - 2 weeks Patient Instructions: Opioid Safety, Pain Management Discharge Attestations Time Spent in Discharge Care*: less than 30 min Quality Metrics Clinical Quality Measures [ No reported AMI, CVA or VTE this stay] Coding Level of Care Code Acute Chg FW DC note Diagnoses Status post open reduction with internal fixation of fracture Z98.890; Z87.81
--- NOTE | 2022-02-23 11:04 | PC.SOCIAL ---
Pg 2 IMM Explained to pt & his Pg 2 IMM. No questions voiced. Provided pt a copy. Initialed, dated, & timed a copy & placed in chart.
== END 2022-02-23 15:51 | disposition home health service (06) | DRG 482 ==
LOC: ER 03:27 → MEDSURG 03:38
PROVIDERS: Orthopaedic Surgery; Admitting Provider Internal Medicine; Emergency Provider Emergency Medicine; PCP Family Medicine; Visit Provider Internal Medicine
PROC: 0QH736Z Insertion of Intramedullary Internal Fixation Device into Left Upper Femur, Percutaneous Approach (ICD-10-PCS; CPT 27245; principal; 2022-02-20 12:00)
DX: S72.142A Displaced intertrochanteric fracture of left femur, initial encounter for closed fracture (principal); W18.30XA Fall on same level, unspecified, initial encounter; E78.5 Hyperlipidemia, unspecified; K52.9 Noninfective gastroenteritis and colitis, unspecified; D51.0 Vitamin 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; I95.1 Orthostatic hypotension
CPT/HCPCS: 36415; 36430; 51702; 71045; 73501; 73502; 76000; 80048; 80053; 82533; 82607; 83735; 83880; 84145; 84443; 85014; 85018; 85025; 85610; 86850; 86900; 86920; 87070; 87205; 87635; 87641; 87801; 87804; 93005; 93306; 94640; 94760; 96361; 96372; 96374; 96375; 97110; 97116; 97161; 97166; 97530; 97535; 99285; C1713; C9113; J0131; J0690; J1100; J1644; J1940; J2270; J2405; J2704; J3010; J7030; J7040; J7613; J7644; P9016

== ENCOUNTER → 2022-03-05 15:17 | Outpatient (BNVA) | payer MEDICARE, SELFPAY | PROVIDERS: PCP Family Medicine; Visit Provider Family Medicine | DX: D51.0 Vitamin 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 (principal) | CPT/HCPCS: 82607; 85025 ==

== ENCOUNTER → 2022-03-08 09:03 | Outpatient (BNVA) | payer MEDICARE, SELFPAY | PROVIDERS: PCP Family Medicine; Visit Provider Nurse Practitioner Family | DX: Z98.890 Other specified postprocedural states (principal); Z87.81 Personal history of (healed) traumatic fracture | CPT/HCPCS: 73502; 99024 ==

== ENCOUNTER → 2022-04-17 10:36 | Outpatient (BNVA) | payer MEDICARE, SELFPAY | PROVIDERS: PCP Family Medicine; Visit Provider Nurse Practitioner Family | DX: Z98.890 Other specified postprocedural states (principal); Z87.81 Personal history of (healed) traumatic fracture | CPT/HCPCS: 73502; 99024 ==

== ENCOUNTER → 2022-07-17 11:09 | Outpatient (BNVA) | payer MEDICARE, SELFPAY | PROVIDERS: PCP Family Medicine; Visit Provider Nurse Practitioner Family | DX: Z87.81 Personal history of (healed) traumatic fracture (principal); Z98.890 Other specified postprocedural states | CPT/HCPCS: 73502; 99213 ==